=== PATIENT | female | born 1980 | race Caucasian/White ===

== ENCOUNTER → 2016-07-17 | Outpatient (CLI) | payer OTHER ==
[2016-07-17 08:52] VITALS: BP 140/73; PULSE 62; RESP 16; TEMP 98.3; BMI 59.9
--- NOTE | 2016-07-17 09:44 | P.PN ---
Subjective Principal diagnosis: S/p lap sleeve gastrectomy 35 years old female status post laparoscopic sleeve gastrectomy on 01/10/2016. Patient was discharged home on Xarelto 20 mg by mouth daily as per bleach supervisor' s recommendation. She is tolerating diet as per post-bariatric diet protocol. No nausea or vomiting. Regular bowel movements. She is ambulating in hallways. Pain is well controlled. No constipation. No new complaints. She has arthritis of left shoulder, bilateral knee pain and back pain and spontaneous left shoulder dislocation. She reports excessive snoring and decrease in SpO2 during hospital admission . Sleep study was not approved by her insurance company and she did not follow-up with Dr. Quiroga . She lives with her and 11-year-old child. She reports good social support system Height 5 feet 4.75 inches, ideal body weight 56 KG Preoperative visit #1, 07/12/2015, weight 230.83 KG, BMI 85.3 Preoperative visit #2, 10/18/2015, weight 211.96 KG BMI 80.2 Preoperative visit #3, 11/29/2015, weight 200.11 KG BMI 75.7 Date of surgery: 01/10/2016, weight 191.7 KG, BMI 72.5 Postoperative visit #1, 01/16/2016, weight 188.78 KG, BMI 71.4 Postoperative visit #2, 01/31/2016, weight 183.70 KG, BMI 69.5 Postoperative visit #3, 04/03/2016, weight 183.70 KG, BMI 64.4 Postoperative visit #3, 07/17/2016, weight 158.36KG, BMI 59.9 Review of Systems Constitutional: Denies fever, weight loss or loss of appetite HEENT: No difficulty in vision or hearing. Denies dysphagia. Cardiovascular: Denies chest pain, palpitations, dizziness, shortness of breath. Respiratory: Excessive snoring with suspected sleep apnea Gastrointestinal: No recent change in bowel habits, no abdominal pain, no nausea or vomiting. Denies reflux symptoms and no postprandial right upper quadrant pain. Integumentary: Extensive rash involving the breast crease and suprapubic area Genitourinary: No urinary incontinence, hematuria or dysuria Neurologic: No seizures, denies weakness in upper or lower extremities Musculoskeletal: Left shoulder pain, bilateral knee pain and back pain Psychiatry: No history of depression, no suicidal ideation, no anxiety or psychosis Past Medical History Past Medical History: Pulmonary Embolus (PE) Additional Past Medical History / Comment(s): morbid obesity, chronic knee pain , left involuntary shoulder dislocation , chronic anemia History of Any Multi-Drug Resistant Organisms: None Reported Past Surgical History: Adenoidectomy, Section, Tonsillectomy, Uterine Ablation Additional Past Surgical History / Comment(s): shoulder x3, d & c Past Anesthesia/Blood Transfusion Reactions: No Reported Reaction Past Psychological History: No Psychological Hx Reported Smoking Status: Former smoker Past Alcohol Use History: None Reported Additional Past Alcohol Use History / Comment(s): QUIT SMOKING 05/04/15, STARTED SMOKING AT AGE 12 (1992) 1PPD Past Drug Use History: None Reported - Past Family History Father Additional Family Medical History / Comment(s): Father had problems with low BP Mother History Unknown: Yes Additional Family Medical History / Comment(s): Mother had many unknown diagnoses Objective - Vital Signs Vital signs: Vital Signs Temp 98.3 F 07/17/16 08:50 Pulse 62 07/17/16 08:50 Resp 16 07/17/16 08:50 BP 140/73 07/17/16 08:50 Pulse Ox Intake & Output 07/16/16 07/17/16 07/17/16 18:59 06:59 18:59 Weight 158.36 kg - Exam General: Patient is alert and oriented to time, place and person and cooperative with exam. HEENT: No pallor, no icterus, no thyroid enlargement, no cervical lymphadenopathy. Chest: Bilateral equal breath sounds present. No wheezes, no crackles. Cardiovascular: Regular rate and rhythm. Abdomen: Soft, nontender, nondistended. Surgical incisions are clean dry and intact. No surgical site infection Integumentary: Dermatitis involving the skin creases, below bilateral breast and suprapubic area Neurologic: Cranial nerves II-XII intact. Strength upper and lower extremities 5/5. No focal neurologic deficits. Gait is normal. Psychiatric: No anxiety or psychosis. No suicidal thoughts. Assessment and Plan (1) Morbid obesity Status: Acute Plan: Assessment and Plan (1) Morbid obesity Status: Acute Plan: Morbid obesity BMI 69.5. Intertriginous dermatitis 1. Continue diet as per bariatric diet protocol. 2. Daily multivitamin 3. Increase physical activity 4. Follow-up in 3 months 5. Vitamin D deficiency - taking Vitamin D supplementation 6. Consult to director clinical information services
== END | disposition home or self-care (01) ==
LOC: BARWHC3 08:31
PROVIDERS: ATTEND Surgery
DX: Z48.815 Encounter for surgical aftercare following surgery on the digestive system (principal); E66.01 Morbid (severe) obesity due to excess calories; Z68.43 Body mass index [BMI] 50.0-59.9, adult; Z71.3 Dietary counseling and surveillance; Z98.84 Bariatric surgery status; Z87.891 Personal history of nicotine dependence; Z79.899 Other long term (current) drug therapy; Z86.711 Personal history of pulmonary embolism
CPT/HCPCS: 99211

== ENCOUNTER 2017-04-18 18:41 | Emergency (ER) | payer OTHER ==
[~2017-04-18 18:41] MED LIST: SODIUM CHLORIDE 0.9% 1,000 ML BAG ONE
--- NOTE | 2017-04-19 12:08 | US ---
EXAM PERFORMED: TRANSABDOMINAL HISTORY: Vaginal bleeding with history of ablation on 116 and in 2005. Beta hCG was unavail able. COMPARISON: 04/03/2017 EXAM MEASUREMENTS: GESTATIONAL AGE/DATING Physician established dates: Not yet established Dates by last menstrual period: Unknown Dates by first ultrasound scan (13 weeks/4 days) Estimated date of delivery 10/20/2017 Dates by current scan (13 weeks/4 days) Estimated date of delivery 10/20/2017 MATERNAL ANATOMY Uterus: 16.6 x 8.2 x 9.1 cm Right ovary: 6.3 x 4.6 x 8.1 cm Left ovary: Unable to visualize Posterior cul-de-sac/adnexa: Within normal limits Presence of free fluid: No GESTATION/ SURVEY Intrauterine : Single [address]-rump length: (13 weeks/4 days) Yolk sac (normal less than 6 mm): Not seen Heart rate: 1 54 bpm Rhythm: Normal Live intrauterine IMPRESSION: Although the exam was slightly technically limited due to patient's body habitus a single live intrauterine measuring 13 weeks and 4 days with an estimated date of delivery of 10/20 was identified. Heart rate of 154 bpm. Dates are concordant with the prior ultrasound.
[2017-04-19 16:19] LABS: Basophils % (A) 0 %; Eosinophils # (A) 0.2 k/uL (0-0.7); Eosinophils % (A) 1 %; HCT 37.9 % (34.0-46.0); HGB 13.4 gm/dL (11.4-16.0); Lymphocytes # (A) 3.4 k/uL (1.0-4.8); Lymphocytes % (A) 30 %; MCH 31.6 pg (25.0-35.0); MCHC 35.3 g/dL (31.0-37.0); MCV 89.4 fL (80.0-100.0); Mean Platelet Volume 6.7; Monocytes # (A) 0.4 k/uL (0-1.0); Monocytes % (A) 3 %; Neutrophils # (A) 7.1 k/uL (1.3-7.7); Neutrophils % (A) 64 %; Platelet Count 252 k/uL (150-450); RBC 4.24 m/uL (3.80-5.40); RDW 12.7 % (11.5-15.5); WBC 11.2 k/uL (3.8-10.6)
[2017-04-19 16:39] LABS: Amorphous Sediment,Urine Few /hpf; Appearance,Urine Cloudy (Clear); Bilirubin,Urine Negative (Negative); Blood,Urine Moderate (Negative); Color,Urine Yellow; Glucose,Urine (UA) Negative (Negative); Ketones,Urine Negative (Negative); Leukocyte Esterase,Urine Negative (Negative); Mucus,Urine Rare /hpf; Nitrite,Urine Negative (Negative); PH, Urine 6.5 (5.0-8.0); Protein,Urine Trace (Negative); RBC,Urine 1 /hpf (0-5); Specific Gravity,Urine 1.023 (1.001-1.035); Squamous Epithelial Cell,Urine 5 /hpf (0-4); WBC,Urine 3 /hpf (0-5)
[2017-04-19 16:45] LABS: ALT 23 U/L (9-52); AST 10 U/L (14-36); Albumin 3.3 g/dL (3.5-5.0); Alkaline Phosphatase 61 U/L (38-126); Anion Gap 11 mmol/L; Blood Urea Nitrogen 8 mg/dL (7-17); Calcium 9.6 mg/dL (8.4-10.2); Carbon Dioxide 23 mmol/L (22-30); Chloride 106 mmol/L (98-107); Glucose 115 mg/dL (74-99); Potassium 4.1 mmol/L (3.5-5.1); Sodium 140 mmol/L (137-145); Total Bilirubin 0.5 mg/dL (0.2-1.3); Total Protein 6.4 g/dL (6.3-8.2)
[2017-04-19 16:46] LABS: HCG,Quantitative Serum 94380.8 mIU/mL
== END 2017-04-19 00:32 | disposition home or self-care (01) ==
LOC: EC 18:41
DX: O20.0 Threatened abortion (principal); Z3A.13 13 weeks gestation of pregnancy
CPT/HCPCS: 36415; 76801; 80053; 81001; 84702; 85025; 86850; 86900; 86901; 99284

== ENCOUNTER → 2018-01-27 | Outpatient (CLI) | payer BC ==
[2018-01-27 15:20] LABS: HGB 12.8 gm/dL (11.4-16.0); MCH 28.4 pg (25.0-35.0); MCHC 32.9 g/dL (31.0-37.0); MCV 86.3 fL (80.0-100.0); Mean Platelet Volume 7.4; Platelet Count 248 k/uL (150-450); RBC 4.52 m/uL (3.80-5.40); WBC 8.5 k/uL (3.8-10.6)
[2018-01-27 15:30] LABS: Partial Thromboplastin Time 22.7 sec (22.0-30.0); Prothrombin Time 9.5 sec (9.0-12.0)
[2018-01-27 15:41] LABS: ALT 31 U/L (9-52); AST 23 U/L (14-36); Albumin 3.7 g/dL (3.5-5.0); Alkaline Phosphatase 82 U/L (38-126); Anion Gap 6 mmol/L; Blood Urea Nitrogen 15 mg/dL (7-17); Calcium 9.4 mg/dL (8.4-10.2); Carbon Dioxide 26 mmol/L (22-30); Chloride 109 mmol/L (98-107); Cholesterol 212 mg/dL (<200); Glucose 91 mg/dL (74-99); HDL Cholesterol 51 mg/dL (40-60); LDL Cholesterol,Calculated 141 mg/dL (0-99); Magnesium 1.8 mg/dL (1.6-2.3); Potassium 4.6 mmol/L (3.5-5.1); Sodium 141 mmol/L (137-145); Total Bilirubin 0.7 mg/dL (0.2-1.3); Total Protein 7.1 g/dL (6.3-8.2); Triglycerides 101 mg/dL (<150)
[2018-01-27 19:03] LABS: Iron Saturation 31.61 (12.00-45.00)
[2018-01-27 19:12] LABS: Folate, Serum 12.5 ng/mL; Vitamin D 25 Hydroxy 20.4 ng/mL (30.0-100.0)
[2018-01-27 20:11] LABS: Parathyroid Hormone Intact 67.8 pg/mL (14.0-72.0)
[2018-01-27 22:45] LABS: Hemoglobin A1C 5.2 % (4.0-6.0)
[2018-01-28 12:33] LABS: Zinc, Serum 70 ug/dL (60-130)
[2018-01-28 14:05] LABS: Vitamin B1 46 ug/L (38-122)
[2018-01-29 05:52] LABS: Vitamin A 51 ug/dL (38-106)
== END | disposition home or self-care (01) ==
LOC: LABWHC1 14:50
PROVIDERS: ATTEND Surgery Plastic and Reconstructive Surgery
DX: E21.1 Secondary hyperparathyroidism, not elsewhere classified (principal); D50.9 Iron deficiency anemia, unspecified; E89.1 Postprocedural hypoinsulinemia; K90.9 Intestinal malabsorption, unspecified; E55.9 Vitamin D deficiency, unspecified; K74.1 Hepatic sclerosis; N19 Unspecified kidney failure; K50.90 Crohn's disease, unspecified, without complications
CPT/HCPCS: 36415; 80053; 80061; 82306; 82525; 82607; 82728; 82746; 83036; 83540; 83550; 83735; 83970; 84100; 84134; 84255; 84425; 84443; 84590; 84630; 85027; 85610; 85730

== ENCOUNTER → 2018-01-28 | Outpatient (CLI) | payer BC, OTHER ==
[2018-01-28 15:54] VITALS: BP 142/80; PULSE 64; TEMP 98.2; BMI 63.6
--- NOTE | 2018-01-28 16:41 | P.PN ---
Subjective Progress Note Date: 01/28/18 HPI: She is a patient of Dr. Lee. She came back after a suprising following a uterine ablation. Her highest weight 564 pounds. Her lowest weight was 323 pounds. She has history of a sleeve. No abdominal pain. No GERD. She is tracking calories. ABDOMEN: Has panniculitis. PLAN: 1. Recommend bariatric panel 2. Possibility of thyroid dysfunction also reviewed 3. Recommend food diary logs to track carbohydrate intake and caloric intake Objective - Vital Signs Vital signs: Vital Signs Temp 98.2 F 01/28/18 15:51 Pulse 64 01/28/18 15:51 Resp BP 142/80 01/28/18 15:51 Pulse Ox Intake & Output 01/27/18 01/28/18 01/28/18 18:59 06:59 18:59 Weight 168.011 kg
== END ==
LOC: BARWHC3 14:31
PROVIDERS: ATTEND Surgery Plastic and Reconstructive Surgery
DX: O99.89 Other specified diseases and conditions complicating pregnancy, childbirth and the puerperium (principal); M79.3 Panniculitis, unspecified
CPT/HCPCS: 99211

== ENCOUNTER → 2019-02-10 | Outpatient (CLI) | payer BC ==
--- NOTE | 2019-02-10 15:43 | P.PN ---
Subjective Progress Note Date: 02/10/19 She comes in with moderate weight gain from 370 to 424 1 year ago. She has much personal stressors from taking care of her mother, son, and family. She is 3 months out. She reports worse neck pain and knee pain. No GERD. No abdominal pain. She was up to 460 pounds. She lost 30 pounds in 1 month from [facility]. No new medications. She is not sleeping. Blood work. Nystatin. DATE OF SERVICE: 01/28/2018 REASON FOR CONSULTATION: Follow-up sleeve gastrectomy HISTORY OF PRESENT ILLNESS: Luanne Oneil is a 37 year female status post sleeve gastrectomy by Dr. Lee 01/10/2016. She is 2 years out. Her highest weight was 565 pounds. Previous BMI was 97.2. Since her last visit to the bariatric Center one year ago, she has gained 21 pounds from 348 pounds. Today she comes in weighing 370 pounds. She has gained 21 pounds in 1 year. Percent excess weight loss is now 46%. Her personal lowest weight was 323 pounds. She reports having a suprising following a uterine ablation and after her sleeve gastrectomy. She denies abdominal pain. No reports of gastroesophageal reflux disease. To get back on track with weight loss, she is tracking calories. At height of 5 feet 4 inches, her ideal body weight is 144 pounds. She comes in 370 pounds. Her highest weight was 565 pounds. Her body mass index highest was 97.2. Today her BMI is 63.6. She is 226 pounds overweight. PAST MEDICAL HISTORY: 1. Morbid obesity due to excess calories 2. Body mass index of 97.2, initial 3. Osteoarthritis of the knees. 4. Osteoarthritis of the lower back. PAST SURGICAL HISTORY: 1. Adenoidectomy 2. Sleeve gastrectomy 3. Section 4. Tonsillectomy 5. Uterine Ablation HOME MEDICATIONS: ALLERGIES: Home Medications Medication Instructions Recorded Confirmed Type Multivitamin/Iron/Folic Acid 1 tab PO DAILY 07/12/15 01/28/18 History [Centrum Complete Multivit Tab] Allergies Allergy/AdvReac Type Severity Reaction Status Date / Time No Known Allergies Allergy Verified 01/28/18 15:54 SOCIAL HISTORY: Past tobacco use. FAMILY HISTORY: No family history of ulcerative colitis disease or Crohn's disease. Family history of morbid obesity. No lupus in the family. No reports of stomach or esophageal cancer. REVIEW OF ORGAN SYSTEMS: CONSTITUTIONAL: At height of 5 feet 4 inches, her ideal body weight is 144 pounds. She comes in 370 pounds. Her highest weight was 565 pounds. Her body mass index highest was 97.2. Today her BMI is 63.6. She is 226 pounds overweight. HEENT: Denies any active troubles with vision or hearing. No troubles with swallowing. ENDOCRINE: No diabetes. No hypothyroidism. CARDIOVASCULAR: No reports of palpitations or heart attacks or chest pain. RESPIRATORY: No daytime somnolence. No asthma. GI: Denies any bright red blood per rectum. No diarrhea. Has constipation. MUSCULOSKELETAL: Has lower back pain and joint pain. Has osteoarthritis of the knees. NEURO: No headaches. No seizure disorders. PSYCH: No depression. No suicidal ideation. RHEUMATOLOGIC: No lupus. No rheumatoid arthritis. HEMATOLOGIC: Denies any abnormal bleeding or bruising. No personal history of DVTs. SKIN: No rash. No skin cancer. PHYSICAL EXAM: VITAL SIGNS: Height 5 foot 4 inches, weight 370 pounds. BMI 63.6 GENERAL: Well-developed in no acute distress. HEENT: No scleral icterus. Extraocular movements grossly intact. Hears conversational speech. No nasal drainage. NECK: Supple without lymphadenopathy. CHEST: Nonlabored respirations with equal bilateral excursions. CARDIOVASCULAR: Regular rate and regular rhythm. Distal 2+ pulses. ABDOMEN: Obese, soft, nontender, nondistended. Has panniculitis. MUSCULOSKELETAL: No clubbing, cyanosis. Gross strength 5/5 distal lower extremities. NEURO: No focal or lateralizing signs. Cranial nerves 2 through 12 grossly within normal limits. PSYCH: Appropriate affect. Alert and oriented to person, place and time. SKIN: Good skin turgor. Well perfused. ASSESSMENT: 1. Morbid obesity due to excess calories 2. Body mass index of 97.2, initial to 63.6 3. Osteoarthritis of the knees. 4. Osteoarthritis of the lower back. 5. Status post sleeve gastrectomy PLAN: 1. Recommend bariatric metabolic panel to elucidate macro- and micro- nutrition deficiencies 2. She has potential thyroid dysfunction that may put her at risk for weight regain. 3. Recommend food diary logs to track carbohydrate intake and caloric intake Thank you for this consultation.
[2019-02-10 15:58] VITALS: BP 162/81; PULSE 75; TEMP 98.2; BMI 72.8
== END | disposition home or self-care (01) ==
LOC: BARWHC3 14:27
PROVIDERS: ATTEND Surgery Plastic and Reconstructive Surgery
DX: Z48.815 Encounter for surgical aftercare following surgery on the digestive system (principal); E66.01 Morbid (severe) obesity due to excess calories; Z68.44 Body mass index [BMI] 60.0-69.9, adult; M17.10 Unilateral primary osteoarthritis, unspecified knee; M47.896 Other spondylosis, lumbar region; Z87.891 Personal history of nicotine dependence; Z98.890 Other specified postprocedural states; Z79.899 Other long term (current) drug therapy
CPT/HCPCS: 99211

== ENCOUNTER → 2019-02-10 | Outpatient (CLI) | payer BC ==
[2019-02-10 17:26] LABS: HCT 43.6 % (34.0-46.0); HGB 14.4 gm/dL (11.4-16.0); MCH 29.9 pg (25.0-35.0); MCV 90.7 fL (80.0-100.0); Mean Platelet Volume 6.9; Platelet Count 243 k/uL (150-450); RDW 14.1 % (11.5-15.5); WBC 8.8 k/uL (3.8-10.6)
[2019-02-10 17:38] LABS: INR 0.9 (<1.2); Partial Thromboplastin Time 22.1 sec (22.0-30.0)
[2019-02-11 00:25] LABS: African American GFR (CKD) 132.1 (60.0-200.0); Albumin 4.3 g/dL (3.80-4.90); Albumin/Globulin Ratio 1.65 (1.60-3.17); Anion Gap 7.2 mmol/L (4.00-12.00); Calcium 9.4 mg/dL (8.7-10.3); Carbon Dioxide 24.8 mmol/L (21.6-31.8); Chol/HDL Ratio 5.13; Globulin 2.6 g/dL (1.6-3.3); Magnesium 1.8 mg/dL (1.5-2.4); Phosphorus 2.9 mg/dL (2.4-5.1); Potassium 4.4 mmol/L (3.5-5.5); Total Bilirubin 0.7 mg/dL (0.3-1.2); Total Protein 6.9 g/dL (6.2-8.2)
[2019-02-11 00:39] LABS: Iron Saturation 14.37 (12.00-45.00)
[2019-02-11 00:48] LABS: Ferritin 30.7 ng/mL (10.0-291.0); Vitamin D 25 Hydroxy 21.6 ng/mL (30.0-100.0)
[2019-02-11 01:25] LABS: Folate, Serum 16.6 ng/mL
[2019-02-11 13:04] LABS: Zinc, Serum 70 ug/dL (60-130)
[2019-02-12 06:34] LABS: Vit B1(Thiamine) 73 ug/L (38-122)
[2019-02-12 07:03] LABS: Vitamin A 35 ug/dL (38-106)
== END | disposition home or self-care (01) ==
LOC: LABWHC1 15:55
PROVIDERS: ATTEND Surgery Plastic and Reconstructive Surgery
DX: E21.1 Secondary hyperparathyroidism, not elsewhere classified (principal); E89.1 Postprocedural hypoinsulinemia; D50.9 Iron deficiency anemia, unspecified; K90.9 Intestinal malabsorption, unspecified; E55.9 Vitamin D deficiency, unspecified; K74.1 Hepatic sclerosis; N19 Unspecified kidney failure; K50.90 Crohn's disease, unspecified, without complications
CPT/HCPCS: 36415; 80053; 80061; 82306; 82525; 82607; 82728; 82746; 83036; 83540; 83550; 83735; 83970; 84100; 84134; 84255; 84425; 84443; 84590; 84630; 85027; 85610; 85730

== ENCOUNTER → 2019-03-10 | Outpatient (CLI) | payer BC ==
[2019-03-10 16:12] VITALS: BP 144/93; PULSE 69; RESP 16; TEMP 98.1; BMI 73.6
--- NOTE | 2019-05-15 15:41 | P.PN ---
Subjective Progress Note Date: 03/10/19 DATE OF SERVICE: 03/10/2019 CHIEF COMPLAINT: Morbid obesity HISTORY OF PRESENT ILLNESS: Luanne Oneil is a 38 year female status post sleeve gastrectomy by Dr. Lee 01/10/2016. She is 3 years out. She comes in with panniculitis. She reports moderate weight regain in over 1 year at least 60+ pounds. She has been on Nystatin powder for at least 1 month. She comes in for medical supervised weight loss. At height of 5 feet 4 inches, her ideal body weight is 144 pounds. She comes in 428 pounds from 423 pounds, 1 month ago. She has gained 5 more pounds in 1 month. Weight gain over 60 pounds in 1 year. Her highest weight was 565 pounds. Her body mass index highest was 97.2. Today her BMI is 73.6. She is 284 pounds overweight. PHYSICAL EXAM: VITAL SIGNS: Height 5 foot 4 inches, weight 428 pounds. BMI 73.6 Vital Signs Temp 98.1 F 03/10/19 16:06 Pulse 69 03/10/19 16:06 Resp 16 03/10/19 16:06 BP 144/93 03/10/19 16:06 Pulse Ox GENERAL: Well-developed in no acute distress. HEENT: No scleral icterus. Extraocular movements grossly intact. Hears convers ational speech. No nasal drainage. NECK: Supple without lymphadenopathy. CHEST: Nonlabored respirations with equal bilateral excursions. CARDIOVASCULAR: Regular rate and regular rhythm. Distal 2+ pulses. ABDOMEN: Obese, soft, nontender, nondistended. Pannus over pubis 5-cm. Weight of pannus over 30+ pounds. MUSCULOSKELETAL: No clubbing, cyanosis. Gross strength 5/5 distal lower extremities. NEURO: No focal or lateralizing signs. Cranial nerves 2 through 12 grossly within normal limits. PSYCH: Appropriate affect. Alert and oriented to person, place and time. SKIN: Good skin turgor. Well perfused. LABS: Reviewed. Iron is low. Vitamin A is low. Vitamin D is low. TSH normal. ASSESSMENT: 1. Morbid obesity due to excess calories 2. Body mass index of 97.2, initial to 73.6 3. Osteoarthritis of the knees. 4. Osteoarthritis of the lower back. 5. Status post sleeve gastrectomy 6. Panniculitis 7. Weight regain following bariatric surgery. PLAN: 1. Recommend food diary journal. 2. Recommend protein intake daily 75+ grams daily. 3. Correction of vitamin deficiencies advised. 4. Continue Nystatin powder for panniculitis. Objective - Vital Signs Vital signs: Vital Signs Temp 98.1 F 03/10/19 16:06 Pulse 69 03/10/19 16:06 Resp 16 03/10/19 16:06 BP 144/93 03/10/19 16:06 Pulse Ox
== END | disposition home or self-care (01) ==
LOC: BARWHC3 15:17
PROVIDERS: ATTEND Surgery Plastic and Reconstructive Surgery
DX: Z48.815 Encounter for surgical aftercare following surgery on the digestive system (principal); E66.01 Morbid (severe) obesity due to excess calories; M17.0 Bilateral primary osteoarthritis of knee; Z98.84 Bariatric surgery status; M79.3 Panniculitis, unspecified; Z68.45 Body mass index [BMI] 70 or greater, adult
CPT/HCPCS: 99211

== ENCOUNTER → 2022-01-29 | Outpatient (CLI) | payer BC ==
[2022-01-29 17:15] LABS: INR 0.9 (<1.2); Partial Thromboplastin Time 23.8 sec (22.0-30.0); Prothrombin Time 10.4 sec (9.0-12.0)
[2022-01-30 01:11] LABS: Chol/HDL Ratio 4.91 Ratio; LDL Cholesterol,Calculated 130.7 mg/dL (0.0-131.0); Prealbumin 16.8 mg/dL (18.0-42.0)
[2022-01-30 01:36] LABS: HCT 44.5 % (37.2-46.3); HGB 14.1 g/dL (12.0-15.0); MCH 28.9 pg (27.0-32.0); MCHC 31.7 g/dL (32.0-37.0); MCV 91.2 fL (80.0-97.0); Mean Platelet Volume 10.2 fL (9.5-12.2); NRBC Per 100 WBC 0 /100 WBCS (0.0-0.0); Platelet Count 283 X 10*3/uL (140-440); RBC 4.88 X 10*6/uL (4.10-5.20); RDW 14.2 % (11.5-14.5); WBC 9.11 X 10*3/uL (4.50-10.00)
[2022-01-30 02:07] LABS: % Iron Saturation 10.82 (12.00-45.00); ALT 30 U/L (8-44); AST 25 U/L (13-35); African American GFR (CKD) 113.3 (60.0-200.0); Albumin 4.1 g/dL (3.8-4.9); Albumin/Globulin Ratio 1.28 (1.60-3.17); Alkaline Phosphatase 91 U/L (41-126); BUN/Creat Ratio 11.05 Ratio (12.00-20.00); Blood Urea Nitrogen 8.3 mg/dL (9.0-27.0); Calcium 9.9 mg/dL (8.7-10.3); Carbon Dioxide 26.1 mmol/L (20.0-27.5); Chloride 106 mmol/L (96-109); Ferritin 50.4 ng/mL (10.0-291.0); Globulin 3.2 g/dL (1.6-3.3); Glucose 94 mg/dL (70-110); Iron 40 ug/dL (50-170); Magnesium 2.1 mg/dL (1.5-2.4); Non-African American GFR(CKD) 97.8 (60.0-200.0); Phosphorus 3.2 mg/dL (2.4-5.1); Potassium 4.6 mmol/L (3.5-5.5); Sodium 144 mmol/L (135-145); Total Iron Binding Capacity 367 ug/dL (228-460); Total Protein 7.3 g/dL (6.2-8.2)
[2022-01-30 11:56] LABS: Zinc, Serum 73 ug/dL (60-130)
[2022-01-31 09:34] LABS: Vit B1(Thiamine) 57 ug/L (38-122)
== END | disposition home or self-care (01) ==
LOC: LABWHC1 16:18
PROVIDERS: ATTEND Surgery Plastic and Reconstructive Surgery
DX: E66.01 Morbid (severe) obesity due to excess calories (principal); D50.8 Other iron deficiency anemias; K91.2 Postsurgical malabsorption, not elsewhere classified; E44.0 Moderate protein-calorie malnutrition; K74.1 Hepatic sclerosis; N19 Unspecified kidney failure; T56.894A Toxic effect of other metals, undetermined, initial encounter; K50.90 Crohn's disease, unspecified, without complications; E89.1 Postprocedural hypoinsulinemia; E55.9 Vitamin D deficiency, unspecified
CPT/HCPCS: 36415; 80053; 80061; 82306; 82525; 82607; 82728; 82746; 83540; 83550; 83735; 83970; 84100; 84134; 84255; 84425; 84443; 84590; 84630; 85027; 85610; 85730

== ENCOUNTER 2022-02-18 07:34 | Day surgery (SDC) | payer BC ==
[2022-02-13 14:15] VITALS: BMI 80.8
[~2022-02-18 07:34] MED LIST changes: +LACTATED RINGERS 1,000 ML IV SCH; -SODIUM CHLORIDE 0.9% 1,000 ML BAG ONE
--- NOTE | 2022-02-18 07:37 | P.GSHP ---
History of Present Illness H&P Date: 02/18/22 CHIEF COMPLAINT: GERD HISTORY OF PRESENT ILLNESS: The patient is a 41-year-old female who presents reports gastroesophageal reflux disease. Upper endoscopy was offered for further evaluation and management. PAST MEDICAL HISTORY: Please see list. PAST SURGICAL HISTORY: Please see list. MEDICATIONS: Please see list. ALLERGIES: Please see list. SOCIAL HISTORY: No illicit drug use FAMILY HISTORY: No reports of Crohn disease or ulcerative colitis. REVIEW OF ORGAN SYSTEMS: CONSTITUTIONAL: No reports of fevers or chills. GI: Denies any blood in stools or constipation. PHYSICAL EXAM: VITAL SIGNS: Stable GENERAL: Well-developed and pleasant in no acute distress. HEENT: No scleral icterus. Extraocular movements grossly intact. Moist buccal mucosa. NECK: Supple without lymphadenopathy. CHEST: Unlabored respirations. Equal bilateral excursions. CARDIOVASCULAR: Regular rate and rhythm. Distal 2+ pulses. ABDOMEN: Soft, nondistended. MUSCULOSKELETAL: No clubbing, cyanosis, or edema. ASSESSMENT: 1. Gastroesophageal reflux disease PLAN: 1. Recommend proceeding with an upper endoscopy Past Medical History Past Medical History: Pulmonary Embolus (PE) Additional Past Medical History / Comment(s): Chronic knee pain, left involuntary shoulder dislocation, chronic anemia. History of Any Multi-Drug Resistant Organisms: None Reported Past Surgical History: Adenoidectomy, Bariatric Surgery, Section, Tonsillectomy, Uterine Ablation Additional Past Surgical History / Comment(s): Left shoulder surgery X3, D&C, gastric sleeve 2015. Past Anesthesia/Blood Transfusion Reactions: No Reported Reaction Past Psychological History: No Psychological Hx Reported Smoking Status: Former smoker Past Alcohol Use History: None Reported Additional Past Alcohol Use History / Comment(s): QUIT SMOKING 05/04/15, STARTED SMOKING AT AGE 12 (1992), 1PPD. Past Drug Use History: None Reported - Past Family History Father Family Medical History: Hypertension Additional Family Medical History / Comment(s): Father had problems with low BP. Mother History Unknown: Yes Family Medical History: Hypertension Additional Family Medical History / Comment(s): Mother had many unknown diagnoses. Medications and Allergies Home Medications Medication Instructions Recorded Confirmed Type Multivitamins, Thera [Multivitamin 1 tab PO DAILY 01/16/22 02/13/22 History (formulary)] Tirzepatide [Mounjaro] 5 mg SQ SA 02/13/22 02/13/22 History Allergies Allergy/AdvReac Type Severity Reaction Status Date / Time No Known Allergies Allergy Verified 02/13/22 14:16
[2022-02-18 08:01] VITALS: RESP 16; TEMP 98.1
[2022-02-18] MEDS ORDERED: LACTATED RINGERS 1,000 ML IV ONE (08:06)
[2022-02-18] MEDS ORDERED: LIDOCAINE 2% INJ 20 MG/ML (2 ML VIAL) ONE (08:28)
[2022-02-18] MEDS ORDERED: MIDAZOLAM 2 MG/2 ML VIAL ONE (08:28)
[2022-02-18] MEDS ORDERED: fentaNYL (PF) 50 MCG/ML 2 ML AMP ONE (08:28)
[2022-02-18] MEDS ORDERED: GLYCOPYRROLATE 0.2 MG/ML 2 ML VIAL ONE (08:28)
[2022-02-18] MEDS ORDERED: PROPOFOL 10 MG/ML 20 ML VIAL IV ONE (08:28)
--- NOTE | 2022-02-18 08:54 | P.PCN ---
Date of Procedure: 02/18/22 Description of Procedure: PREOPERATIVE DIAGNOSIS: Status post sleeve gastrectomy. Gastroesophageal reflux disease. POSTOPERATIVE DIAGNOSIS: Status post sleeve gastrectomy. Gastroesophageal reflux disease. Erosive esophagitis, chronic. Chronic superficial gastritis. OPERATION: Esophagogastroduodenoscopy with cold forceps biopsies along the antrum. SURGEON: Thuy Johansen MD ANESTHESIA: MAC. INDICATIONS: The patient is a 41-year-old female who presents with a history of sleeve gastrectomy including weight regain. She is over 5 years out from her bariatric procedure. Benefits and risks of the procedure were described. Informed consent was obtained. DESCRIPTION: The patient was brought into the endoscopy suite and laid in the left lateral decubitus position. An Olympus gastroscope was passed along the posterior oropharynx down to the distal esophagus where the squamocolumnar junction was at 37 centimeters from the incisors remarkable for chronic erosive esophagitis, LA grade B without ulceration. The sleeve reservoir moderately large allowing easy retroflexion of the scope to view the lower esophageal valve. Chronic gastritis albeit mild was found along the antrum with cold biopsies obtained. The first through third portion of the duodenum was examined. The scope again had easily retroflexed along the antrum. The stomach was desufflated. The patient tolerated the procedure well. FINDINGS: No acute ulceration found along her sleeve. No corkscrewing sleeve gastrectomy. Squamocolumnar junction at 37 cm from the incisors. No diaphragmatic hiatal hernia Moderate large gastric reservoir with prior history of sleeve gastrectomy allowing easy retroflexion of the gastroscope to view the lower esophageal valve. LA grade B erosive esophagitis. Chronic gastritis. RECOMMENDATIONS: Upper endoscopy as needed. Plan - Discharge Summary Discharge Rx Participant: No New Discharge Prescriptions: Continue Tirzepatide [Mounjaro] 5 mg SQ SA Multivitamins, Thera [Multivitamin (formulary)] 1 tab PO DAILY Discharge Medication List Multivitamins, Thera [Multivitamin (formulary)] 1 tab PO DAILY 01/16/22 [History] Tirzepatide [Mounjaro] 5 mg SQ SA 02/13/22 [History] Follow up Appointment(s)/Referral(s): [place], [place] [NON-STAFF] - 03/06/22 Patient Instructions/Handouts: GERD (Gastroesophageal Reflux Disease) (ED) Discharge Disposition: HOME SELF-CARE
[2022-02-18 09:05] VITALS: BP 109/67; PULSE 98
== END 2022-02-18 09:30 | disposition home or self-care (01) ==
LOC: ORWHC2ENDO 07:34
PROVIDERS: ATTEND Surgery Plastic and Reconstructive Surgery
DX: K29.30 Chronic superficial gastritis without bleeding (principal); Z87.891 Personal history of nicotine dependence; E66.01 Morbid (severe) obesity due to excess calories; K21.00 Gastro-esophageal reflux disease with esophagitis, without bleeding; Z82.49 Family history of ischemic heart disease and other diseases of the circulatory system; Z98.84 Bariatric surgery status; Z86.711 Personal history of pulmonary embolism
CPT/HCPCS: 81025; 88305; 43239; J2250; J3010; J2704; J2001

== ENCOUNTER → 2022-03-06 | Outpatient (CLI) | payer BC ==
[2022-03-06 14:16] VITALS: BP 169/96; PULSE 99; TEMP 98; BMI 83.4
--- NOTE | 2022-03-06 14:50 | P.BASOAP ---
Subjective Progress Note Date: 03/06/22 She is looking for more weight loss. Discussed ineffective weight loss with re- sleeve. Recommend duodenal switch vs. JORGE LUIS. Sent protonix and nystatin Objective - Vital Signs Vital signs: Vital Signs Temp 98 F 03/06/22 14:12 Pulse 99 03/06/22 14:12 Resp BP 169/96 03/06/22 14:12 Pulse Ox FiO2 Intake & Output 03/05/22 03/06/22 03/06/22 18:59 06:59 18:59 Weight 220.446 kg Assessment/Plan Plan: Date: 03/06/22 Initial Weight: 230.833 kg Initial BMI: 87.3 Current Weight: 220.446 kg Current BMI: 83.4 Type of Surgery: Total Volume in Band: Previous Volume: Volume Removed: Volume Added: Band Size:
== END ==
LOC: BARWHC3 13:14
PROVIDERS: ATTEND Surgery Plastic and Reconstructive Surgery
DX: E66.01 Morbid (severe) obesity due to excess calories (principal)
CPT/HCPCS: 99211

== ENCOUNTER 2023-09-13 22:19 | Emergency (ER) | payer BC ==
[2023-09-13 23:07] VITALS: RESP 18
--- NOTE | 2023-09-13 23:40 | XR ---
EXAMINATION TYPE: XR ribs RT w pa chest xray DATE OF EXAM: 09/13/2023 CLINICAL HISTORY: Right-sided rib pain after injury. TECHNIQUE: Single frontal view of the chest is obtained. A frontal and oblique images of the right-si ded ribs. COMPARISON: Chest x-ray and CT chest May 05, 2015 FINDINGS: There is no suspicious new focal air space opacity, pleural effusion, or pneumothorax seen . The cardiac silhouette size is within normal limits. The osseous structures are intact. No acute displaced right-sided rib fracture. Overlying soft tissue is unremarkable. IMPRESSION: 1. No acute cardiopulmonary process. 2. No acute displaced right-sided rib fracture.
--- NOTE | 2023-09-13 23:49 | ED ---
General Adult HPI - General Chief complaint: Back Pain/Injury Stated complaint: right side flank pain Time Seen by Provider: 09/13/23 22:56 Source: patient Mode of arrival: ambulatory Limitations: no limitations - History of Present Illness Initial comments: 43-year-old female presenting with chief complaint of right-sided rib pain. Patient was at a children's play place, states that she tried to slide between 2 structures and did not fit. She felt a pop on the right side of her ribs. She states that immediately after she did not have much pain, after she got home and removed her bra she started to have more pain. Worse with movement and deep breaths. No lightheadedness or dizziness. - Related Data Home Medications Medication Instructions Recorded Confirmed Multivitamins, Thera [Multivitamin 1 tab PO DAILY 01/16/22 03/06/22 (formulary)] Tirzepatide [Mounjaro] 5 mg SQ SA 02/13/22 03/06/22 Previous Rx's Medication Instructions Recorded Nystatin 100,000 Unit/gm Powd 1 applic TOPICAL BID #60 gm 03/06/22 [Mycostatin Powder] Omeprazole [PriLOSEC] 40 mg PO DAILY #30 cap 03/06/22 Allergies Allergy/AdvReac Type Severity Reaction Status Date / Time extended release medications AdvReac Nausea & Uncoded 09/13/23 22:54 Vomiting Review of Systems ROS Statement: Those systems with pertinent positive or pertinent negative responses have been documented in the HPI. ROS Other: All systems not noted in ROS Statement are negative. Past Medical History Past Medical History: Pulmonary Embolus (PE) Additional Past Medical History / Comment(s): Chronic knee pain, left involuntary shoulder dislocation, chronic anemia. History of Any Multi-Drug Resistant Organisms: None Reported Past Surgical History: Adenoidectomy, Bariatric Surgery, Section, Tonsillectomy, Uterine Ablation Additional Past Surgical History / Comment(s): Left shoulder surgery X3, D&C, gastric sleeve 2015. Duodenal Switch 2022 Past Anesthesia/Blood Transfusion Reactions: No Reported Reaction Past Psychological History: No Psychological Hx Reported Smoking Status: Former smoker Past Alcohol Use History: None Reported Past Drug Use History: None Reported - Past Family History Father Family Medical History: Hypertension Mother History Unknown: Yes Family Medical History: Hypertension General Exam Limitations: no limitations General appearance: alert, in no apparent distress Head exam: Present: atraumatic, normocephalic Eye exam: Present: normal appearance, EOMI Neck exam: Present: normal inspection. Absent: meningismus Respiratory exam: Present: normal lung sounds bilaterally, chest wall tenderness (Right side). Absent: respiratory distress, wheezes, rales, rhonchi, stridor Cardiovascular Exam: Present: regular rate, normal rhythm, normal heart sounds. Absent: systolic murmur, diastolic murmur, rubs, gallop, clicks Neurological exam: Present: alert, oriented X3 Psychiatric exam: Present: normal affect, normal mood Skin exam: Present: normal color Course Vital Signs 09/13/23 09/14/23 22:50 00:24 Temperature 98.3 F 98.2 F Pulse Rate 65 70 Respiratory 18 18 Rate Blood Pressure 116/81 118/84 O2 Sat by Pulse 97 98 Oximetry Medical Decision Making - Medical Decision Making Was pt. sent in by a medical professional or institution (, PA, COOLER SUPERVISOR, urgent care, hospital, or detention...) When possible be specific @ -No Did you speak to anyone other than the patient for history (EMS, parent, family, police, friend...)? What history was obtained from this source @ -No Did you review nursing and triage notes (agree or disagree)? Why? @ -I reviewed and agree with nursing and triage notes Were old charts reviewed (outside hosp., previous admission, EMS record, old EKG, old radiological studies, urgent care reports/EKG's, detention records)? Report findings @ -No old charts were reviewed Differential Diagnosis (chest pain, altered mental status, abdominal pain women, abdominal pain men, vaginal bleeding, weakness, fever, dyspnea, syncope, headache, dizziness, GI bleed, back pain, seizure, CVA, palpatations, mental health, musculoskeletal)? @ -Differential Musculoskeletal Muscular strain, contusion, ligament sprain, fracture, arthritis, septic arthritis, bursitis, cellulitis, muscle spasm, nerve compression, DVT, arterial occlusion, herpes zoster, electrolyte abnormality, tumor.... This is not meant to be in all inclusive list EKG interpreted by me (3pts min.). @ -As above X-rays interpreted by me (1pt min.). @ -X-ray shows no acute cardiopulmonary process. No acute displaced right- sided rib fracture. CT interpreted by me (1pt min.). @ -None done U/S interpreted by me (1pt. min.). @ -None done What testing was considered but not performed or refused? (CT, X-rays, U/S, labs)? Why? @ -None What meds were considered but not given or refused? Why? @ -None Did you discuss the management of the patient with other professionals (professionals i.e. DrPolina, PA, COOLER SUPERVISOR, lab, RT, psych nurse, social media analyst, painter airbrush, teacher, collection officer, caseworker)? Give summary @ -No Was smoking cessation discussed for >3mins.? @ -No Was critical care preformed (if so, how long)? @ -No Were there social determinants of health that impacted care today? How? (Ilir elessness, low income, unemployed, alcoholism, drug addiction, transportation, low edu. Level, literacy, decrease access to med. care, group home, rehab)? @ -No Was there de-escalation of care discussed even if they declined (Discuss DNR or withdrawal of care, Hospice)? DNR status @ -No What co-morbidities impacted this encounter? (DM, HTN, Smoking, COPD, CAD, Cancer, CVA, ARF, Chemo, Hep., AIDS, mental health diagnosis, sleep apnea, morbid obesity)? @ -None Was patient admitted / discharged? Hospital course, mention meds given and route, prescriptions, significant lab abnormalities, going to OR and other pertinent info. @ -43-year-old female presenting with chief complaint of right-sided rib pain. Patient injured her right side at a children's play place today. Heart and lungs are clear to auscultation, breath sounds are equal bilaterally. X-ray shows no acute cardiopulmonary process and no acute displaced rib fractures. Patient is educated on today's findings. She is provided lidocaine patch and educated on supportive management. Discharged home. Follow-up with PCP. Report back to ER with any new or worsening symptoms. Discussed return parameters and answered all questions. Patient conveyed verbal understanding and agreed to the plan. I discussed this case in detail with my attending Dr. Cruz Undiagnosed new problem with uncertain prognosis? @ -No Drug Therapy requiring intensive monitoring for toxicity (Heparin, Nitro, Insulin, Cardizem)? @ -No Were any procedures done? @ -No Diagnosis/symptom? @ -Rib injury Acute, or Chronic, or Acute on Chronic? @ -Acute Uncomplicated (without systemic symptoms) or Complicated (systemic symptoms)? @ -Uncomplicated Side effects of treatment? @ -No Exacerbation, Progression, or Severe Exacerbation? @ -No Poses a threat to life or bodily function? How? (Chest pain, [place], [place], pneumonia, PE, COPD, DKA, ARF, appy, cholecystitis, CVA, Diverticulitis, Homicidal, Suicidal, threat to staff... and all critical care pts) @ -Low likelihood Disposition Clinical Impression: Rib injury Disposition: HOME SELF-CARE Condition: Good Instructions (If sedation given, give patient instructions): Rib Contusion (ED) Additional Instructions: Follow-up with PCP. Report back to ER with any new or worsening symptoms. Is patient prescribed a controlled substance at d/c from ED?: No Referrals: Anny Marin MD [Primary Care Provider] - 1-2 days Time of Disposition: 23:48
[2023-09-14] MEDS: LIDOCAINE 4% PATCH TOPICAL ONE (00:20)
[2023-09-14 01:03] VITALS: BP 118/84; PULSE 70; TEMP 98.2
== END 2023-09-14 00:28 | disposition home or self-care (01) ==
LOC: EC 22:19
DX: S29.9XXA Unspecified injury of thorax, initial encounter (principal); Z88.8 Allergy status to other drugs, medicaments and biological substances; Z87.891 Personal history of nicotine dependence; X58.XXXA Exposure to other specified factors, initial encounter
CPT/HCPCS: 99283

== ENCOUNTER → 2024-01-15 | Outpatient (CLI) | payer BC ==
--- NOTE | 2024-01-15 08:15 | US ---
EXAMINATION TYPE: US abdomen limited DATE OF EXAM: 01/15/2024 COMPARISON: NONE CLINICAL INDICATION: Female, 43 years old with history of Z98.84 BARIATRIC SURG STATUS R10.11 RUQ ANNABELLE N; RUQ pain. TECHNIQUE: Multiple sonographic images of the right upper quadrant are obtained. FINDINGS: EXAM MEASUREMENTS: Liver Length: 16.2 cm Gallbladder Wall: 0.2 cm CBD: 0.6 cm Right Kidney: 10.3 x 5.9 x 4.5 cm Pancreas: Limited visualization of tail Liver: wnl Gallbladder: Enlarged in size. Sludge seen in fundal region. Echogenic foci seen with largest - 2. 3 cm Evidence for sonographic Martinez's sign: neg CBD: wnl Right Kidney: No hydronephrosis or masses seen 1. IMPRESSION: 2. No evidence for acute process. 3. Cholelithiasis/biliary sludge. [facility] Daniele Agustin, , 01/15/2024 8:12 AM
== END | disposition home or self-care (01) ==
LOC: RADUSWWP 06:51
PROVIDERS: ATTEND Surgery
DX: R10.11 Right upper quadrant pain (principal); Z98.84 Bariatric surgery status
CPT/HCPCS: 76705